=== PATIENT | male | born 1950 | race Caucasian/White ===

== ENCOUNTER 2017-07-26 15:04 | Inpatient (IN) | payer MEDICARE ==
[~2017-07-26] VITALS: Ht 167.6 cm; Wt 77.0 kg
[2017-07-26] MEDS ORDERED: PLEASE ENTER ALLERGIES MC SCH ×2 (16:30)
[2017-07-26] MEDS ORDERED: LORazepam 1MG TABLET PO ONE (16:30)
[2017-07-26 16:32] LABS: HEMOGLOBIN 14.7 g/dL (13.7-18.0); WHITE BLOOD COUNT 7.6 x10^3/uL (3.4-10)
[2017-07-26 16:34] LABS: BLOOD UREA NITROGEN 23 mg/dL (7-18)
[2017-07-26 16:44] LABS: ASPARTATE AMINO TRANSFERASE 25 U/L (15-37)
[2017-07-26 16:49] LABS: ACETAMINOPHEN < 2 mcg/mL (10-30)
[2017-07-26] MEDS ORDERED: DIPHENHYDRAMINE 50 MG CAPSULE PO PRN ×2 (19:30)
[2017-07-26] MEDS ORDERED: LORazepam 1MG TABLET PO PRN (19:30)
[2017-07-26] MEDS ORDERED: QUETIAPINE 25MG TABLET PO PRN (19:30)
[2017-07-26] MEDS ORDERED: ZIPRASIDONE 20 MG INJ IM PRN (19:30)
[2017-07-26] MEDS ORDERED: DOCUSATE 100 MG CAPSULE PO PRN (19:30)
[2017-07-26] MEDS ORDERED: ACETAMINOPHEN 325 MG TABLET PO PRN (19:30)
[2017-07-27 04:01] VITALS: BP 147/69
[2017-07-27 07:26] LABS: DAU SCREEN DISCLAIMER
[2017-07-27 09:02] VITALS: BP 119/56
== END 2017-07-27 11:48 | DRG 885 ==
LOC: ED 19:38 → OBSVTOIN 19:50 → EDIP 19:50 → 3NE 21:13
PROVIDERS: ADMIT Family Medicine; ATTEND Family Medicine
DX: F23 Brief psychotic disorder (principal); F20.0 Paranoid schizophrenia; F17.200 Nicotine dependence, unspecified, uncomplicated
CPT/HCPCS: 36415; 70450; 71010; 80053; 80307; 80329; 81001; 82140; 84439; 84443; 85025; 87077; 87086; 87186; 93005; 99285; J3486; G0479; G0480